=== PATIENT | female | born 1980 | race Caucasian/White ===

== ENCOUNTER 2018-01-11 09:15 | Emergency (ER) | payer OTHER, SELFPAY ==
[2018-01-11 09:17] VITALS: BP 136/82; PULSE 63; RESP 18; TEMP 36.4; O2SAT 100
[2018-01-11 09:34] LABS: Bacteria Urine None Seen; RBC Urine None Seen (0-5/HPF); WBC Urine None Seen (0-5/HPF)
[2018-01-11 09:35] LABS: Appearance Urine UA CLEAR; Bilirubin Urine UA NEGATIVE (NEGATIVE); Color Urine UA YELLOW; Glucose Urine UA NEGATIVE (Normal); Ketones Urine UA NEGATIVE (NEGATIVE); Leukocyte Esterase Urine UA NEGATIVE (NEGATIVE); Nitrite Urine UA Negative (Negative); Occult Blood Urine UA TRACE-INTACT (Negative); Protein Urine UA NEGATIVE (Negative); Specific Gravity Urine UA <=1.005 (1.000-1.035); Urobilinogen Urine UA 0.2 E.U./dL (0.2); pH Urine UA 6.5 (4.5-8.0)
[2018-01-11 09:41] LABS: Pregnancy Test Urine Positive (Negative)
[2018-01-11 09:46] LABS: Culture Indicated Urine Cult Not Indicated; Urine Comments Microscopic Normal
--- NOTE | 2018-01-11 10:49 | DI.US.S_ITS ---
PROCEDURE: US OB <= 14 WEEKS FETUS INDICATIONS: clots OUTSIDE/PRIOR DATING DATA: Last menstrual period (LMP): 10.28.17. LMP-based estimated date of delivery (BENITA): 08.31.18. First dating scan (date and location): 01.11.18 [facility]. Estimated date of delivery (BENITA) from first dating scan: 08.31.18. TECHNIQUE: Real-time scanning was performed of the fetus and maternal pelvic organs, with image documentation. COMPARISON: None. FINDINGS: Embryo: A single living intrauterine gestation is present with a heart rate of 122 beats per minute. [place]-rump length is 9 mm, corresponding to a 6 week 6 day gestation. Measurement variability in dating: +/- 4 weeks by LMP, +/- 7 days by mean sac diameter (use before 6 weeks gestation if crown-rump length not able to be measured), +/- 5 days by crown-rump length (up to 8 weeks 6 days gestation), +/- 7 days by crown-rump length (up to 13 weeks 6 days gestation). Maternal organs: Ovaries within normal limits. Limited images through the kidneys demonstrate no hydronephrosis. IMPRESSION: Early single living intrauterine gestation as above. Dictated by: Nimo Harrington M.D. on 01/11/2018 at 12:15 Approved by: Nimo Harrington M.D. on 01/11/2018 at 12:16
[2018-01-11 11:05] VITALS: BP 111/71; PULSE 66; RESP 15; O2SAT 100
[2018-01-11 11:28] LABS: Add Manual Diff / Slide Review NO; Basophils Percent Auto 0.4 % (0-2); Eosinophils Percent Auto 2.2 % (2-4); Hematocrit 40.5 % (36-46); Hemoglobin 13.5 g/dL (12.0-16.0); Lymphocytes Percent Auto 35.6 % (25-40); Mean Corpuscular HGB Conc 33.2 % (30-36); Mean Corpuscular Hemoglobin 30.2 PG (26-34); Neutrophils Absolute Auto 3700 /uL (3000-5900); Neutrophils Percent Auto 53.8 % (50-75); Platelet Count 209 X10^3/uL (150-400); Red Blood Cell Count 4.45 X10^6/uL (4.0-5.2); Red Cell Distribution Width 13.5 % (11.6-14.8); White Blood Cell Count 6.9 X10^3/uL (4.5-11.0)
--- NOTE | 2018-01-11 11:33 | ED_ITS ---
HPI - General Chief complaint: OB/Uterine Contractions Stated complaint: 7 WKS PREG,BROWN DISCHARGE Time Seen by Provider: 01/11/18 10:49 Source: patient Mode of arrival: ambulatory Limitations: no limitations History of Present Illness HPI Narrative: Patient is a 37-year-old female who presents with abdominal cramping and bleeding. She is currently 7 weeks . She passed 1 clot. She has had some spotting last week. History of 1 miscarriage in the past. Overall feeling weak tired and occasionally nauseated but nothing out of the ordinary. MD Complaint: vaginal bleeding and vaginal discharge Related Data Allergies Allergy/AdvReac Type Severity Reaction Status Date / Time Penicillins AdvReac Intermediate Hives Verified 01/11/18 09:17 Review of Systems Review of Systems GENERAL: Denies chills, fatigue, malaise, fever, sweats, travel HEENT: Denies sinus pain, ear pain, sore throat, difficulty swallowing, neck pain RESPIRATORY: Denies dyspnea, cough, wheezing, hemoptysis, sputum. CARDIOVASCULAR: Denies chest pain, palpitations, orthopnea, edema GASTROINTESTINAL: Denies nausea, vomiting, abdominal pain, diarrhea, constipation, melena. : Denies dysuria, frequency, incontinence, hematuria, urinary retention, flank pain. 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 12 point review of systems is negative except for those stated above and HPI All systems reviewed & are unremarkable except as noted in HPI and below Exam Initial Vital Signs Initial Vital Signs: Vital Signs Temperature 97.5 F L 01/11/18 09:17 Pulse Rate 63 01/11/18 09:17 Respiratory Rate 18 01/11/18 09:17 Blood Pressure 136/82 H 01/11/18 09:17 Pulse Oximetry 100 01/11/18 09:17 GENERAL: Well-appearing, well-nourished and in no acute distress. CARDIOVASCULAR: peripheral pulses in tact, cap refill <2 sec RESPIRATORY: No respiratory distress, speaks in full sentences without difficulty ABDOMEN: Soft, nontender, no guarding or rebound EXTREMITIES: Normal range of motion, no clubbing or edema. Neurovascularly intact NEUROLOGICAL: Cranial nerves II through XII grossly intact. Normal gait and speech. SKIN: Warm, dry, no petechiae, no rashes or lesions. Course Orders Ordered: ED Orders 01/11/18 09:20 Test Urine Stat UA Complete [Urinalysis and Microscopic] Stat 01/11/18 10:49 US OB <= 14 weeks fetus Stat 01/11/18 11:10 ABO RH Type Stat Complete Blood Count AUTO DIFF Stat Comprehensive Metabolic Panel Stat HCG Quantitative Stat Discontinued Medications Sodium Chloride (Normal Saline 0.9%) 1,000 mls @ 1,000 mls/hr IV BOLUS ONE Stop: 01/11/18 11:48 Vital Signs - 8 hr 01/11/18 09:17 01/11/18 11:05 01/11/18 12:00 Temperature 97.5 F L Pulse Rate 63 66 61 Respiratory Rate 18 15 16 Blood Pressure 136/82 H Blood Pressure [Left Arm] 111/71 109/70 Pulse Oximetry 100 100 100 01/11/18 13:15 Temperature Pulse Rate 61 Respiratory Rate 14 Blood Pressure 121/74 H Blood Pressure [Left Arm] Pulse Oximetry 99 MDM - OB/Uterine Contractions Lab Data Result diagrams: 01/11/18 11:10 01/11/18 11:10 Lab Results 01/11/18 01/11/18 01/11/18 Range/Units 09:20 09:20 11:10 WBC 6.9 (4.5-11.0) X10^3/uL RBC 4.45 (4.0-5.2) X10^6/uL Hgb 13.5 (12.0-16.0) g/dL Hct 40.5 (36-46) % MCV 91.0 (80-100) fL MCH 30.2 (26-34) PG MCHC 33.2 (30-36) % RDW 13.5 (11.6-14.8) % Plt Count 209 (150-400) X10^3/uL Neut % (Auto) 53.8 (50-75) % Lymph % (Auto) 35.6 (25-40) % [place] % (Auto) 8.0 (3-14) % Eos % (Auto) 2.2 (2-4) % Baso % (Auto) 0.4 (0-2) % Neut # (Auto) 3700 (4895-6132) /uL Sodium (137-145) mmol/L Potassium (3.4-5.1) mmol/L Chloride (98-107) mmol/L Carbon Dioxide (22-32) mmol/L BUN (7-17) mg/dL Creatinine (0.52-1.04) mg/dL Estimated GFR (>60) mL/min BUN/Creatinine Ratio (6-22) Glucose (70-100) mg/dL Calcium (8.4-10.2) mg/dL Total Bilirubin (0.2-1.3) mg/dL AST (14-36) IU/L ALT (9-52) IU/L Alkaline Phosphatase (38-126) U/L Total Protein (6.3-8.2) g/dL Albumin (3.5-5.0) g/dL Globulin (1.7-4.1) g/dL Albumin/Globulin Ratio (1.0-2.8) HCG, Quant mIU/mL Urine Color Yellow Urine Appearance Clear Urine pH 6.5 (4.5-8.0) Ur Specific [place] <=1.005 (1.000-1.035) Urine Protein Negative (Negative) Urine Glucose (UA) Negative (Normal) g/dL Urine Ketones Negative (NEGATIVE) Urine Occult Blood Trace-intact (Negative) Urine Nitrate Negative (Negative) Urine Bilirubin Negative (NEGATIVE) Urine Urobilinogen 0.2 (0.2) E.U./dL Ur Leukocyte Esterase Negative (NEGATIVE) Urine RBC None seen (0-5/HPF) Urine WBC None seen (0-5/HPF) Urine Bacteria None seen (None) Ur Culture Indicated? Cult not indicated Micro UA Comment Microscopic normal Urine Test Positive H (Negative) Blood Type 01/11/18 01/11/18 Range/Units 11:10 11:10 WBC (4.5-11.0) X10^3/uL RBC (4.0-5.2) X10^6/uL Hgb (12.0-16.0) g/dL Hct (36-46) % MCV (80-100) fL MCH (26-34) PG MCHC (30-36) % RDW (11.6-14.8) % Plt Count (150-400) X10^3/uL Neut % (Auto) (50-75) % Lymph % (Auto) (25-40) % [place] % (Auto) (3-14) % Eos % (Auto) (2-4) % Baso % (Auto) (0-2) % Neut # (Auto) (1004-9923) /uL Sodium 139 (137-145) mmol/L Potassium 3.7 (3.4-5.1) mmol/L Chloride 102 (98-107) mmol/L Carbon Dioxide 27 (22-32) mmol/L BUN 7 (7-17) mg/dL Creatinine 0.50 L (0.52-1.04) mg/dL Estimated GFR > 60.0 (>60) mL/min BUN/Creatinine Ratio 14.0 (6-22) Glucose 87 (70-100) mg/dL Calcium 9.0 (8.4-10.2) mg/dL Total Bilirubin 0.4 (0.2-1.3) mg/dL AST 24 (14-36) IU/L ALT 27 (9-52) IU/L Alkaline Phosphatase 45 (38-126) U/L Total Protein 7.9 (6.3-8.2) g/dL Albumin 4.2 (3.5-5.0) g/dL Globulin 3.7 (1.7-4.1) g/dL Albumin/Globulin Ratio 1.1 (1.0-2.8) HCG, Quant 38117 mIU/mL Urine Color Urine Appearance Urine pH (4.5-8.0) Ur Specific [place] (1.000-1.035) Urine Protein (Negative) Urine Glucose (UA) (Normal) g/dL Urine Ketones (NEGATIVE) Urine Occult Blood (Negative) Urine Nitrate (Negative) Urine Bilirubin (NEGATIVE) Urine Urobilinogen (0.2) E.U./dL Ur Leukocyte Esterase (NEGATIVE) Urine RBC (0-5/HPF) Urine WBC (0-5/HPF) Urine Bacteria (None) Ur Culture Indicated? Micro UA Comment Urine Test (Negative) Blood Type A Positive Imaging Data OB US<14wks: Radiologist's impression: PROCEDURE: US OB <= 14 WEEKS FETUS INDICATIONS: clots OUTSIDE/PRIOR DATING DATA: Last menstrual period (LMP): 4. LMP-based estimated date of delivery (BENITA): 08.31.18. First dating scan (date and location): 01.11.18 [facility]. Estimated date of delivery (BENITA) from first dating scan: 08.31.18. TECHNIQUE: Real-time scanning was performed of the fetus and maternal pelvic organs, with image documentation. COMPARISON: None. FINDINGS: Embryo: A single living intrauterine gestation is present with a heart rate of 122 beats per minute. [place]-rump length is 9 mm, corresponding to a 6 week 6 day gestation. Measurement variability in dating: +/- 4 weeks by LMP, +/- 7 days by mean sac diameter (use before 6 weeks gestation if crown-rump length not able to be measured), +/ - 5 days by crown-rump length (up to 8 weeks 6 days gestation), +/- 7 days by crown-rump length (up to 13 weeks 6 days gestation). Maternal organs: Ovaries within normal limits. Limited images through the kidneys demonstrate no hydronephrosis. IMPRESSION: Early single living intrauterine gestation as above. Discharge Plan Departure Patient Disposition: Home, Self-Care Clinical Impression: , threatened Discharge Date/Time: 01/11/18 13:15 Interventions: ED Discharge Assessment Last Done: 01/11/18 13:15 Instructions: Threatened Activity Restrictions/Additional Instructions: [id number] *You have been diagnosed with threatened *What to do: Ultrasound baby looks healthy beta HCG is reassuring be sure to have it rechecked in 2 days with your Ob -pelvic rest *Continue to take medications as directed *Follow up with your primary care provider in 2-3 days *Return to ER if you should have increasing vaginal bleeding, increasing abdominal pain or any new, worsening or concerning symptoms Referrals: Viviana Haas DO [Physician] -
[2018-01-11 11:37] LABS: Alanine Aminotransferase 27 IU/L (9-52); Albumin 4.2 g/dL (3.5-5.0); Albumin Globulin Ratio 1.1 (1.0-2.8); Alkaline Phosphatase 45 U/L (38-126); Aspartate Aminotransferase 24 IU/L (14-36); Bilirubin Total 0.4 mg/dL (0.2-1.3); Blood Urea Nitrogen 7 mg/dL (7-17); Carbon Dioxide 27 mmol/L (22-32); Chloride 102 mmol/L (98-107); Estimated Glomerular Filt Rate > 60.0 mL/min (>60); Globulin 3.7 g/dL (1.7-4.1); Glucose 87 mg/dL (70-100); HEMOLYSIS < 15 (0-50); Potassium 3.7 mmol/L (3.4-5.1); Sodium 139 mmol/L (137-145); Total Protein 7.9 g/dL (6.3-8.2)
[2018-01-11 12:00] VITALS: BP 109/70; PULSE 61; RESP 16; O2SAT 100
[2018-01-11 12:19] LABS: HCG Quantitative /Beta subunit 74328 mIU/mL
[2018-01-11 13:15] VITALS: BP 121/74; PULSE 61; RESP 14; O2SAT 99
== END 2018-01-11 13:15 | disposition home or self-care (01) ==
PROVIDERS: Emergency Provider Emergency Medicine
DX: O20.0 Threatened abortion (principal); Z3A.01 Less than 8 weeks gestation of pregnancy
CPT/HCPCS: 36591; 76801; 80053; 81001; 81025; 84702; 85025; 86900; 86901; 96360; 99282; 99284

== ENCOUNTER → 2018-01-27 12:03 | Outpatient (CLI) | payer OTHER, SELFPAY ==
--- NOTE | 2018-01-27 12:45 | DI.US.S_ITS ---
PROCEDURE: US OB <= 14 WEEKS FETUS INDICATIONS: DATES OUTSIDE/PRIOR DATING DATA: Last menstrual period (LMP): 4.3.18. LMP-based estimated date of delivery (BENITA): 2... First dating scan (date and location): 01.11.18 [facility]. Estimated date of delivery (BENITA) from first dating scan: 2... TECHNIQUE: Real-time scanning was performed of the fetus and maternal pelvic organs, with image documentation. Endovaginal scanning was also performed to better visualize the fetus and maternal ovaries. COMPARISON: [facility], , OB <= 14 WEEKS FETUS, 01/11/2018, 11:45. FINDINGS: Embryo: [place]-rump length measures 2.4 cm corresponding to 9 weeks 1 day. Heart rate measures 157 beats per minute. Measurement variability in dating: +/- 4 weeks by LMP, +/- 7 days by mean sac diameter (use before 6 weeks gestation if crown-rump length not able to be measured), +/- 5 days by crown-rump length (up to 8 weeks 6 days gestation), +/- 7 days by crown-rump length (up to 13 weeks 6 days gestation). Maternal organs: Ovaries not visualized. Limited images through the kidneys demonstrate no hydronephrosis. IMPRESSION: 9 week 1 day single living IUP. Dictated by: Hugo Doshi [facility] Interpreted: Gabi Tyson MD on 01/27/2018 at 14:49 Approved by: Gabi Tyson MD, PhD on 01/27/2018 at 17:01
== END ==
PROVIDERS: Visit Provider Family Medicine
DX: Z34.91 Encounter for supervision of normal pregnancy, unspecified, first trimester (principal); Z3A.09 9 weeks gestation of pregnancy
CPT/HCPCS: 76801; 76817

== ENCOUNTER → 2018-01-27 12:44 | Outpatient (CLI) | payer OTHER, SELFPAY ==
[2018-01-27 13:58] LABS: Add Manual Diff / Slide Review NO; Basophils Percent Auto 0.2 % (0-2); Eosinophils Percent Auto 2.3 % (2-4); Hematocrit 38.4 % (36-46); Hemoglobin 12.8 g/dL (12.0-16.0); Mean Corpuscular HGB Conc 33.4 % (30-36); Mean Corpuscular Hemoglobin 30.4 PG (26-34); Monocytes Percent Auto 6.2 % (3-14); Neutrophils Absolute Auto 4200 /uL (3000-5900); Neutrophils Percent Auto 56.3 % (50-75); Platelet Count 240 X10^3/uL (150-400); Red Blood Cell Count 4.21 X10^6/uL (4.0-5.2); Red Cell Distribution Width 13.1 % (11.6-14.8); White Blood Cell Count 7.6 X10^3/uL (4.5-11.0)
[2018-01-27 15:45] LABS: Hepatitis B Surface Antigen NEGATIVE s/c (NEGATIVE)
[2018-01-27 15:46] LABS: Rubella Antibody IgG 14.6 IU/mL (>15)
[2018-01-27 16:02] LABS: HIV 1 and 2 Antibody NEGATIVE (NEGATIVE); Hep C Virus Ab w/Reflex Quant NEGATIVE s/c (NEGATIVE)
[2018-01-29 15:55] LABS: HSV 2 IGG AB < 0.90 index (< 0.90); HSV1IGG < 0.90 index (< 0.90)
[2018-02-03 10:46] LABS: Rapid Plasma Reagin NON-REACTIVE
== END ==
PROVIDERS: Visit Provider Family Medicine
DX: Z34.91 Encounter for supervision of normal pregnancy, unspecified, first trimester (principal)
CPT/HCPCS: 36415; 76801; 76817; 80055; 86695; 86696; 86703; 86787; 86803; 86850; 86900; 86901

== ENCOUNTER → 2018-02-02 09:22 | Outpatient (CLI) | payer OTHER, SELFPAY ==
[2018-02-02 12:21] LABS: TSH w/ Reflex to FT4 0.67 uIU/mL (0.47-4.68)
== END ==
PROVIDERS: PCP Family Medicine; Visit Provider Family Medicine
DX: O09.511 Supervision of elderly primigravida, first trimester (principal); Z3A.09 9 weeks gestation of pregnancy
CPT/HCPCS: 36415; 84443

== ENCOUNTER → 2018-02-27 14:25 | Outpatient (CLI) | payer OTHER, SELFPAY ==
[2018-02-27 15:47] LABS: TSH w/ Reflex to FT4 1.44 uIU/mL (0.47-4.68)
== END ==
PROVIDERS: PCP Family Medicine; Visit Provider Family Medicine
DX: O09.521 Supervision of elderly multigravida, first trimester (principal); E03.9 Hypothyroidism, unspecified; O99.280 Endocrine, nutritional and metabolic diseases complicating pregnancy, unspecified trimester
CPT/HCPCS: 36415; 84443

== ENCOUNTER → 2018-04-03 15:16 | Outpatient (CLI) | payer OTHER, SELFPAY ==
[2018-04-03 17:50] LABS: Thyroid Stimulating Hormone 1.63 uIU/mL (0.47-4.68)
[2018-04-09 15:31] LABS: AFP, Serum 54.4 ng/mL; Calc Gestational Age 18.6; Est Date Determined by US; Maternal Weight 167 lbs; Number of Fetuses 1; Prev Pregnancies Down Syndrome NOT GIVEN
== END ==
PROVIDERS: PCP Family Medicine; Visit Provider Family Medicine
DX: E03.9 Hypothyroidism, unspecified (principal); O99.280 Endocrine, nutritional and metabolic diseases complicating pregnancy, unspecified trimester
CPT/HCPCS: 36415; 82105; 84443

== ENCOUNTER → 2018-04-16 07:37 | Outpatient (CLI) | payer OTHER, SELFPAY ==
--- NOTE | 2018-04-16 07:38 | DI.US.S_ITS ---
PROCEDURE: US OB >= 14 WEEKS FETUS INDICATIONS: ANATOMY OUTSIDE/PRIOR DATING DATA: Last menstrual period (LMP): 4.3.18. LMP-based estimated date of delivery (BENITA): 2... First dating scan (date and location): 18 at [facility]. Estimated date of delivery (BENITA) from first dating scan: 2... TECHNIQUE: Real-time scanning was performed of the fetus, with image documentation and biometric measurements. COMPARISON: [facility], OB <= 14 WEEKS FETUS, 01/11/2018, 11:45. [facility], OB <= 14 WEEKS FETUS, 01/27/2018, 13:11. FINDINGS: General: A single live intrauterine gestation is present. Presentation: Vertex. Placenta: Placental position is anterior, without previa. Amniotic fluid index: 15.2 cm, normal range is 5-24 cm. heart rate: 153 beats per minute. Maternal cervical canal: 3.1 cm long. Normal lower limit is 2.5 cm. biometrics: Biparietal diameter: 4.7 cm equals 20 weeks 1 day Head circumference: 18.5 cm equals 20 weeks 6 days Abdominal circumference: 13.2 cm equals 20 weeks 1 day Femur length: 3.5 cm equals 20 weeks 0 days Estimated gestational age from initial scan: 20 weeks 3 days Composite gestational age from present scan: 21 weeks 0 days Estimated weight and percentile: 427 g, 93rd percentile Measurement variability for biometric dating: +/- 7 days from 14 weeks to 15 weeks 6 days gestation, +/- 10 days from 16 weeks to 21 weeks 6 days gestation, +/- 2 weeks from 22 weeks to 27 weeks 6 days gestation, +/- 3 weeks for 28 weeks gestation or later. weight reference: 4500 g or EFW >90/95% is considered macrosomia or large for gestational age. EFW <10% is small for gestational age. EFW 5% or less is considered intra-uterine growth restriction. Anatomic survey: Neuro: Ventricles are non-dilated at less than 10 mm. Cisterna magna is normal at 3-11 mm. Cerebellum is normal in size and morphology. Nuchal skin fold: Normal at less than 6 mm between 14-21 weeks gestational age. Face: Nose and lips are within normal limits. The facial profile is not well-seen. Spine: No evidence for spina bifida. Heart: 4-chambered heart is present, with normal ventricular outflow tracts. Diaphragm: Diaphragm is intact. Stomach: Left-sided stomach is present. Kidneys: No hydronephrosis. Normal is less than 5 mm in 2nd trimester, less than 7 mm in 3rd trimester. Cord: 3-vessel cord has orthotopic insertion. Bladder: Normal in size. Extremities: All 4 extremities identified. IMPRESSION: Normal interval growth when compared to the prior ultrasound examination. No anatomic abnormality is identified, although the facial profile is not well-seen. Dictated by: Naveen iKm M.D. on 04/16/2018 at 8:47 Approved by: Naveen Kim M.D. on 04/16/2018 at 8:51
== END ==
PROVIDERS: PCP Family Medicine; Visit Provider Family Medicine
DX: Z34.92 Encounter for supervision of normal pregnancy, unspecified, second trimester (principal); Z3A.21 21 weeks gestation of pregnancy
CPT/HCPCS: 76811

== ENCOUNTER → 2018-05-01 15:00 | Outpatient (CLI) | payer OTHER, SELFPAY | PROVIDERS: PCP Family Medicine; Visit Provider Family Medicine | DX: E03.9 Hypothyroidism, unspecified (principal); O99.280 Endocrine, nutritional and metabolic diseases complicating pregnancy, unspecified trimester | CPT/HCPCS: 36415; 84443 ==

== ENCOUNTER → 2018-06-04 09:45 | Outpatient (CLI) | payer OTHER, SELFPAY ==
[2018-06-04 13:15] LABS: Hematocrit 33.8 % (36-46); Hemoglobin 11.1 g/dL (12.0-16.0)
[2018-06-04 14:27] LABS: GTT (PREG) 1 Hour PP 50gm Dose 113 mg/dL (76-139)
== END ==
PROVIDERS: PCP Family Medicine; Visit Provider Family Medicine
DX: Z34.82 Encounter for supervision of other normal pregnancy, second trimester (principal); Z3A.27 27 weeks gestation of pregnancy
CPT/HCPCS: 36415; 82950; 85014; 85018

== ENCOUNTER → 2018-07-10 11:45 | Outpatient (CLI) | payer OTHER, SELFPAY ==
--- NOTE | 2018-07-10 11:47 | DI.US.S_ITS ---
PROCEDURE: US OB LIMITED INDICATIONS: PROFILE, CERVICAL LENGTH OUTSIDE/PRIOR DATING DATA: Last menstrual period (LMP): 4.3.18. LMP-based estimated date of delivery (BENITA): 2.4.19. First dating scan (date and location): 6.17.18 at [facility]. Estimated date of delivery (BENITA) from first dating scan: 2.4.19. TECHNIQUE: Real-time scanning was performed of the fetus, with image documentation. Endovaginal scanning: No COMPARISON: [facility], , OB >= 14 WEEKS FETUS, 04/16/2018, 7:51. FINDINGS: A single living intrauterine gestation is present. Presentation: Vertex Placenta: Placental position is anterior, without previa. Amniotic fluid index: 12.7 cm, normal range is 5-24 cm. heart rate: 135 beats per minute. Maternal cervical canal: 3.2 cm long. Normal lower limit is 2.5 cm. Estimated gestational age from initial scan: 32 weeks 4 days Facial profile again not well-seen.. IMPRESSION: Facial profile again not well-visualized secondary to positioning. Dictated by: Hugo Doshi [facility] Interpreted: Kelechi Mcdonnell MD on 07/10/2018 at 13:34 Approved by: Kelechi Mcdonnell M.D. on 07/10/2018 at 14:29
[2018-07-10 12:59] LABS: TSH w/ Reflex to FT4 0.77 uIU/mL (0.47-4.68)
== END ==
PROVIDERS: PCP Family Medicine; Visit Provider Family Medicine
DX: Z36.2 Encounter for other antenatal screening follow-up (principal); Z3A.32 32 weeks gestation of pregnancy; O99.283 Endocrine, nutritional and metabolic diseases complicating pregnancy, third trimester; E03.9 Hypothyroidism, unspecified
CPT/HCPCS: 36415; 76815; 84443

== ENCOUNTER → 2018-08-07 09:55 | Outpatient (CLI) | payer OTHER, SELFPAY ==
[2018-08-08 08:38] LABS: Strep Grp B PCR NEG for Grp B Strep
== END ==
PROVIDERS: PCP Family Medicine; Visit Provider Family Medicine
DX: Z34.93 Encounter for supervision of normal pregnancy, unspecified, third trimester (principal); Z3A.36 36 weeks gestation of pregnancy
CPT/HCPCS: 87653

== ENCOUNTER 2018-08-07 10:02 | Outpatient (CLI) | payer OTHER, SELFPAY ==
--- NOTE | 2018-08-07 10:46 | PM.OBTRLD ---
Visit Information Visit Information Date of evaluation: 08/07/18 Primary OB Provider: Viviana Haas Reason for Evaluation: Yes non-stress test non-stress test reason: other (Advanced maternal age) PFSH Medical History Abnormal Pap smear of cervix (Chronic ~2003) Foot pain (Chronic ~2005) Fractures (Chronic ~1996) Human papilloma virus (Chronic ~2003) Hypothyroidism (Chronic ~2010) Migraines (Chronic ~1996) History of chicken pox (Resolved) Surgical History H/O sinus surgery (Chronic) Martin's neuroma (Chronic) Anesthesia (Resolved) H/O LEEP (Resolved) Family History Grandfather Lung cancer Hypertension Heart disease Grandfather Lung cancer Grandmother Lung cancer Grandmother Afib Mother Hypertension Social History marital status: number of children: 1 household members: spouse and children lives independently: Yes pets and animals: Yes education level: other (Doctoral degree) 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 Reactive NST for AMA. Contractions present but patient not feeling them. Follow up in one week.
--- NOTE | 2018-08-07 10:49 | P.TNLD_ITS ---
Visit Information Visit Information Date of evaluation: 08/07/18 Primary OB Provider: Viviana Haas Reason for Evaluation: Yes non-stress test non-stress test reason: other ( Advanced maternal age) PFSH Medical History Abnormal Pap smear of cervix (Chronic ~2003) Foot pain (Chronic ~2005) Fractures (Chronic ~1996) Human papilloma virus (Chronic ~2003) Hypothyroidism (Chronic ~2010) Migraines (Chronic ~1996) History of chicken pox (Resolved) Surgical History H/O sinus surgery (Chronic) Martin's neuroma (Chronic) Anesthesia (Resolved) H/O LEEP (Resolved) Family History Grandfather Lung cancer Hypertension Heart disease Grandfather Lung cancer Grandmother Lung cancer Grandmother Afib Mother Hypertension Social History marital status: number of children: 1 household members: spouse and children lives independently: Yes pets and animals: Yes education level: other (Doctoral degree) 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 Reactive NST for AMA. Contractions present but patient not feeling them. Follow up in one week.
== END 2018-08-07 10:46 | disposition home or self-care (01) ==
LOC: LABOR 10:39 → OB 08-10 14:49
PROVIDERS: PCP Family Medicine; Visit Provider Family Medicine
DX: O09.523 Supervision of elderly multigravida, third trimester (principal); Z3A.36 36 weeks gestation of pregnancy
CPT/HCPCS: 59025; 87653; G0378; G0379

== ENCOUNTER 2018-08-10 09:41 | Outpatient (CLI) | payer OTHER, SELFPAY ==
--- NOTE | 2018-08-10 10:19 | PM.OBTRLD ---
Visit Information Visit Information Date of evaluation: 08/10/18 Primary OB Provider: Viviana Haas Reason for Evaluation: Yes rupture of membranes Comments/Additional reasons for admission: Patient concerned about possible ROM this morning. Denies painful contractions. 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) Smoking Status: Former smoker alcohol intake: former (quit during pregnanct) substance use type: does not use Evaluation Evaluation Baseline heart rate: 130 Variability: Moderate (11-25) monitor accelerations: Present monitor decelerations: Absent Uterine Contraction Intensity: Mild Category of Tracing: I Non-invasive Membranes Rupture Test: negative Diagnosis, Plan/Disposition Final Diagnosis (1) 37 weeks gestation of : Current Visit: No Status: Acute (2) Previous section: Current Visit: No Status: Chronic Plan/Disposition Plan: Aminsure negative, contractions irregular and not felt by patient. Follow up as scheduled later this week. Return to center for ROM or regular contractions.
== END 2018-08-10 10:30 | disposition home or self-care (01) ==
LOC: OB 14:59
PROVIDERS: PCP Family Medicine; Visit Provider Family Medicine
DX: Z03.71 Encounter for suspected problem with amniotic cavity and membrane ruled out (principal); Z3A.37 37 weeks gestation of pregnancy
CPT/HCPCS: 59025; 84112; G0378; G0379

== ENCOUNTER 2018-08-14 10:15 | Outpatient (CLI) | payer OTHER, SELFPAY ==
--- NOTE | 2018-08-14 11:16 | P.TNLD_ITS ---
Visit Information Visit Information Date of evaluation: 08/14/18 Primary OB Provider: Viviana Haas Reason for Evaluation: Yes non-stress test non-stress test reason: other (AMA) PFSH Medical History Abnormal Pap smear of cervix (Chronic ~2003) Foot pain (Chronic ~2005) Fractures (Chronic ~1996) Human papilloma virus (Chronic ~2003) Hypothyroidism (Chronic ~2010) Migraines (Chronic ~1996) History of chicken pox (Resolved) Surgical History H/O sinus surgery (Chronic) Martin's neuroma (Chronic) Anesthesia (Resolved) H/O LEEP (Resolved) Family History Grandfather Lung cancer Hypertension Heart disease Grandfather Lung cancer Grandmother Lung cancer Grandmother Afib Mother Hypertension Social History marital status: number of children: 1 household members: spouse and children lives independently: Yes pets and animals: Yes education level: other (Doctoral degree) 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 Follow up in one week as scheduled.
== END 2018-08-14 10:55 | disposition home or self-care (01) ==
LOC: LABOR 11:23 → OB 08-17 12:05
PROVIDERS: PCP Family Medicine; Visit Provider Family Medicine
DX: O09.523 Supervision of elderly multigravida, third trimester (principal); Z3A.37 37 weeks gestation of pregnancy
CPT/HCPCS: 59025; G0378; G0379

== ENCOUNTER 2018-08-18 05:28 | Inpatient (IN) | payer OTHER, SELFPAY ==
[2018-08-18] VITALS (8 sets, daily range): BP systolic 96–140; BP diastolic 46–81; PULSE 64–72; RESP 11–22; TEMP 36.3–36.9; O2SAT 97–100
--- NOTE | 2018-08-18 06:55 | PM.OBHP.1 ---
OB HPI Date/Time Date of admission: 08/18/18 Date Patient Seen: 08/18/18 Time Patient Seen: 06:45 History of Present Condition Chief complaint: evaluation of labor : 3 Para: 1 Estimated Date of Delivery: 08/29/18 Estimated Gestational Age (weeks): 38w1d Narrative: Cintia Fox is a 38 year old at 38+1 weeks gestation with h/o prior who presented to the center with contractions and SROM upon arrival. Indications Operative indications ( section): previous uterine surgery History of Present care: good care, initiated at week # (9), number of visits (10) and pounds weight gain (50) Dating criteria: LMP confirmed by 1st trimester US Ultrasounds: normal mid trimester US Obstetrical complications: other (AMA, h/o LEEP) Medical complications: other (Well-controlled hypothyroidism) Preadmission Labs Blood type: A (+) positive -: Antibody screen: negative, HBsAG: negative, HIV: negative, HSV 1: negative, HSV 2: negative and RPR/VDLR: negative -: Chlamydia screen: not detected and Gonorrhea screen: not detected -: Rubella: equivocal and Varicella: immune HCT: 38.4 HCAB: negative PAP: Normal Cell-free DNA: Normal, AFP normal 1 hr GTT: 113 Prior (ies) History: 10/19/14 C/S at 39 weeks for breech, female 8 lbs 6 oz Evaluation Evaluation Baseline heart rate: 130 Variability: Moderate (11-25) monitor accelerations: Present monitor decelerations: Absent Contraction Frequency (minutes): 4 Uterine Contraction Intensity: Moderate Category of Tracing: I Non-invasive Membranes Rupture Test: positive [facility] Medical History Abnormal Pap smear of cervix (Chronic ~2003) Foot pain (Chronic ~2005) Fractures (Chronic ~1996) Human papilloma virus (Chronic ~2003) Hypothyroidism (Chronic ~2010) Migraines (Chronic ~1996) History of chicken pox (Resolved) Surgical History H/O sinus surgery (Chronic) Martin's neuroma (Chronic) Anesthesia (Resolved) H/O LEEP (Resolved) Family History Grandfather Lung cancer Hypertension Heart disease Grandfather Lung cancer Grandmother Lung cancer Grandmother Afib Mother Hypertension Social History marital status: number of children: 1 household members: spouse and children lives independently: Yes pets and animals: Yes education level: other (Doctoral degree) 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) Smoking Status: Never smoker alcohol intake: former (quit during pregnanct) substance use type: does not use Meds Home Medications Medication Instructions Recorded Confirmed Type levothyroxine 112 mcg tablet See Label Instructions PO DAILY 06/23/18 Rx #120 tab breast pump #1 each 07/31/18 Rx Allergies Allergy/AdvReac Type Severity Reaction Status Date / Time Penicillins AdvReac Intermediate Hives Verified 01/11/18 09:17 Review of Systems Review of Systems All systems reviewed & are unremarkable except as noted in HPI and below Exam Const General: healthy appearing and comfortable HENMT Head: normal to inspection Ears: hearing grossly normal bilaterally Nose: external nose normal Mouth: oral mucosae normal Teeth and gingiva: dentition normal Eyes General: appearance normal, both eyes and all related structures Neck Neck: normal visual inspection Thyroid: thyroid normal Resp Effort & Inspection: normal respiratory effort Auscultation: clear to auscultation bilaterally and no wheezes Cardio Rate: regular rate Rhythm: regular rhythm Heart Sounds: S1 normal, S2 normal and no murmurs GI Other: Gravid Uterus Location (Fundal Height): 39 Presentation: vertex Estimated Weight (lbs): 8 Amniotic Fluid: clear Skin General: no rashes or lesions noted Neuro General: alert, awake and oriented x3 Extrem General: normal to inspection and no clubbing, cyanosis or edema Assessment and Plan (1) 38 weeks gestation of : Current visit: Yes Status: Acute (2) Advanced maternal age (AMA) in : Current visit: No Status: Chronic (3) Previous section: Current visit: No Status: Chronic (4) Hypothyroidism affecting : Current visit: No Status: Chronic Plan: Plan: 38 year old at 38+1 weeks gestation with spontaneous rupture of membranes and regular contractions with h/o prior . Will proceed with repeat . Risks of procedure reviewed with patient including bleeding, infection, risk of injury to bowel or bladder. Consent signed and in the chart. Ancef 2 g prior to surgery.
[2018-08-18] MEDS: LACTATED RINGERS 1,000 ML 100 ML IV ×3 (07:00→08:26)
[2018-08-18 07:08] LABS: Add Manual Diff / Slide Review NO; Basophils Absolute Auto 0 /uL (0-100); Basophils Percent Auto 0.2 % (0-2); Eosinophils Absolute Auto 100 /uL (0-450); Eosinophils Percent Auto 1.3 % (2-4); Hematocrit 37.7 % (36-46); Hemoglobin 12.6 g/dL (12.0-16.0); Lymphocytes Absolute Auto 2100 /uL (1100-4500); Lymphocytes Percent Auto 22.2 % (25-40); Mean Corpuscular HGB Conc 33.4 % (30-36); Mean Corpuscular Hemoglobin 30.4 PG (26-34); Mean Corpuscular Volume 91.1 fL (80-100); Monocytes Absolute Auto 700 /uL (0-900); Neutrophils Absolute Auto 6600 /uL (1500-7000); Neutrophils Percent Auto 69.3 % (50-75); Platelet Count 245 X10^3/uL (150-400); Red Blood Cell Count 4.14 X10^6/uL (4.0-5.2); Red Cell Distribution Width 14.8 % (11.6-14.8); White Blood Cell Count 9.6 X10^3/uL (4.5-11.0)
--- NOTE | 2018-08-18 07:19 | PM.PREOP ---
Pre-operative Note Interval Note History & Physical reviewed/Exam performed by Physician: Yes Changes to H&P: No
[2018-08-18] MEDS: CEFAZOLIN 2 GM/100 ML FROZ.PIGGY IV (07:35)
--- NOTE | 2018-08-18 08:12 | SUR.OPER ---
Supine on Padded OR bed, head on pillow, safety belt at thigh, arms secured on padded arm boards at <90 degrees abduction. Bump under right buttock. Legs uncrossed with pillow under knees, gel pad to heels, tape over blanket to lower legs.
--- NOTE | 2018-08-18 08:12 | SUR.OPER ---
Viable female delivered at 0800. Placenta and Cord Blood sent with L&D nurse.
--- NOTE | 2018-08-18 08:56 | PM.OP.1 ---
Operative Date/Time/Diagnoses Date of procedure: 08/18/18 Time of procedure: 09:33 Pre-op diagnosis: Prior 38 weeks of Spontaneous rupture of membranes Post-op diagnosis: same Procedure & Clinicians Procedure: Low transverse section Same procedure as scheduled: Yes Indications: Prior Surgeon: Viviana Haas Accounting Software Specialist: Nayla Sarabia Anesthesia Type: Spinal Operative Notes Findings: Viable female , normal uterus, tubes and ovaries Closure Type: primary Specimen(s): other (Cord blood) Applied: catheter Estimated Blood Loss (mL): 500 Procedure in detail: The patient was taken to the operating room where she was placed in the seated position. Spinal anesthesia was administered. She was then placed in the dorsal supine position with a leftward tilt. She was prepped and draped in the usual sterile fashion. A timeout was performed. After spinal analgesia was found to be adequate, a Pfannenstiel skin incision was made 2 fingerbreadths above the pubic symphysis and carried through to the underlying layer fascia. The fascia was nicked in the midline and the incision extended bilaterally with Bui scissors. The superior aspect of the fascial incision was grasped with a Cassidy clamps, elevated, and the underlying rectus muscles dissected off sharply and bluntly. Attention was then turned to the inferior aspect of this incision which in a similar fashion was grasped with a Cassidy clamps, elevated, and the underlying rectus muscles dissected off sharply and bluntly. The rectus muscles were in the midline. The peritoneum was identified, grasped between 2 hemostats, and entered sharply with the Metzenbaum scissors. This incision was extended superiorly and inferiorly with good visualization of the bladder. The bladder blade was inserted. The vesicouterine peritoneum was identified, grasped with the pickup, and entered sharply with the Metzenbaum scissors. This incision was extended bilaterally, and the bladder flap was created digitally. The bladder blade was reinserted. The lower uterine segment was incised in a transverse fashion with the scalpel. Upon entering the amniotic sac there was a small amount clear amniotic fluid. The 's head was delivered. The remainder of the body delivered without difficulty. The cord was double clamped and cut. The infant was handed off to waiting RN and RT. The placenta was delivered manually. The uterus was cleared of all clots and debris. The uterine incision was repaired with #1 chromic in a running interlocking fashion and a second layer the same suture was used for an imbricating layer. Hemostasis was achieved. The tubes and ovaries were examined and were found to be normal. The gutters were cleared of all clots and debris. The parietal peritoneum was closed using 3-0 Vicryl in a running fashion. The fascia was reapproximated using 0 Vicryl in a running fashion. Subcutaneous layer was copiously irrigated with warm normal saline. 6 simple interrupted sutures of 3-0 Vicryl were placed to reapproximate the subcutaneous layer. The skin was closed with 4-0 undyed Vicryl in a subcuticular fashion. Steri-Strips were placed. An Aquacel dressing was placed. The uterus was expressed of a small amount of old blood. Sponge, lap, and instrument counts were correct. The patient tolerated the procedure well, and was taken to PACU in stable condition.
--- NOTE | 2018-08-18 09:14 | SUR.PHASEI ---
Initially nauseated, treated with phenyephrine by dr be and ivette sow, now resolved tolerated ice chip. spinal down to T 12.
[2018-08-18] MEDS: OXYCODONE/ACETAMINOPHEN 5/325 TABLET 1 TAB PO (11:56)
[2018-08-18] MEDS: ONDANSETRON 4 MG/2 ML INJ IV (12:38)
[2018-08-18] MEDS: KETOROLAC 30 MG/ML VIAL IV ×2 (14:59→21:12)
[2018-08-19 02:49] VITALS: TEMP 37.2
[2018-08-19] MEDS: KETOROLAC 30 MG/ML VIAL IV (02:49)
[2018-08-19] MEDS: LANOLIN OINT 7 GM 1 APPLIC TOP (06:13)
[2018-08-19 07:44] LABS: Hematocrit 30.6 % (36-46); Hemoglobin 10.3 g/dL (12.0-16.0)
[2018-08-19] MEDS: DOCUSATE 250 MG CAPSULE PO (08:27)
[2018-08-19] MEDS: LEVOTHYROXINE 112 MCG TABLET PO (08:27)
[2018-08-19] MEDS: IBUPROFEN 600 MG TABLET PO ×3 (09:26→21:19)
[2018-08-19] MEDS: ACETAMINOPHEN 325 MG TABLET 650 MG PO ×2 (11:54→23:39)
--- NOTE | 2018-08-19 13:26 | PM.OBPN.1 ---
Subjective - OB Interval history: Patient had recurrent vomiting after Percocet yesterday. Aquacel dressing become saturated and had to be removed. No further bleeding from the incision or further vomiting. Patient is taking Tylenol and ibuprofen with reasonable control of her pain. Vaginal bleeding is light. She is voiding and passing gas. going well. No complaints. Patient comments: no complaints, pain well controlled, tolerating diet and flatus present [place] baby status: doing well feeding status: exclusively breast feeding Date Patient Seen: 08/19/18 Time Patient Seen: 12:45 Exam Vital Signs (past 8 hours): Oxygen Delivery Method Room Air Temperature 98.4 BP 106/66 Pulse 68 Respirations 16 Narrative Exam Narrative: General: Awake and alert, no acute distress. HEENT: NCAT, EOMI, moist oral mucosa CV: Regular rate and rhythm, no murmurs, rubs or gallops Lungs: CTAB, no wheezes, rales, or rhonchi Abdomen: Lower abdominal dressing clean and dry. Abdomen soft, nontender; bowel tones active; uterus firm 1 cm below umbilicus Extremities: Warm, trace edema bilaterally, 2+ pedal pulses bilaterally Objective Labs Result Diagrams: 08/19/18 07:22 Labs: Laboratory Results - last 24 hr 08/19/18 07:22 Hgb 10.3 L Hct 30.6 L Assessment & Plan (1) 38 weeks gestation of : Status: Acute Current Visit: Yes (2) Advanced maternal age (AMA) in : Status: Chronic Current Visit: No (3) Previous section: Status: Chronic Current Visit: No (4) Hypothyroidism affecting : Status: Chronic Current Visit: No (5) S/P : Status: Acute Current Visit: Yes Plan day: 1 plan OB: routine care and routine postop care Comments: Anticipate discharge home tomorrow. Time Spent With Patient Total time spent is greater than 50% in coordination of care (as documented) at patient's floor/unit and/or counseling patient: less than 15 minutes
[2018-08-20] MEDS: LEVOTHYROXINE 112 MCG TABLET PO (04:01)
[2018-08-20] MEDS: IBUPROFEN 600 MG TABLET PO ×2 (04:06→09:17)
[2018-08-20] MEDS: ACETAMINOPHEN 325 MG TABLET 650 MG PO (06:01)
[2018-08-20 09:33] VITALS: BP 98/48; PULSE 70; RESP 11; TEMP 37.2
--- NOTE | 2018-08-20 09:52 | PM.OBDS.1 ---
Discharge Providers Date of admission: 08/18/18 05:28 Primary care physician: Viviana Haas DO Consults: 08/18/18 09:33 Consult to Valve Inserter Routine Comment: Discharge provider: Viviana Haas DO Discharge Date: 08/20/18 Summary Date Patient Seen: 08/20/18 Time Patient Seen: 09:30 Hospital Course: Patient is a 38-year-old status post repeat section on 08/17/18. Patient presented to the center with spontaneous rupture of membranes and active labor so was taken to the operating room for repeat . She was originally scheduled for repeat on 08/24/18. In the hours after delivery patient developed nausea and vomiting secondary to Percocet. Aquacel dressing had to be removed due to bleeding of her incision however upon removal bleeding had stopped. ABD dressing placed without further bleeding. Patient declined opiate pain medication and nausea and vomiting did not return. Pain was reasonably well controlled with ibuprofen and Tylenol. Patient reported vaginal bleeding was light. going well. Patient was ambulating, voiding and stooling without difficulty. She was eager to discharge home. Exam Temperature 98.6? blood pressure 134/76 heart rate 56 respirations 16 General: Awake and alert, no acute distress. HEENT: NCAT, EOMI, moist oral mucosa CV: Regular rate and rhythm, no murmurs, rubs or gallops Lungs: CTAB, no wheezes, rales, or rhonchi Abdomen: Low transverse abdominal incision intact, Steri-Strips intact. No surrounding erythema or exudate. Soft, nontender; bowel tones active; uterus firm 1 cm below umbilicus. Extremities: Warm, no edema, 2+ pedal pulses bilaterally Peripartum Data Infant Delivery Method: Section complications: none Discharge Diagnosis (1) 38 weeks gestation of : Status: Acute (2) Advanced maternal age (AMA) in : Status: Chronic (3) Previous section: Status: Chronic (4) Hypothyroidism affecting : Status: Chronic (5) S/P : Status: Acute Status at Discharge Functional status at discharge: independent ambulation Overall status at discharge: patient is progressing back to baseline Time Spent with Patient Total time spent providing and/or coordinating discharge services: Less than 30 minutes Objective Labs Result Diagrams: 08/19/18 07:22 Discharge Plan Discharge Plan Patient Disposition: Home Discharge comment: Patient instructed to call for fevers, severe pain or bleeding through more than a pad an hour. Follow-up with Dr. Haas as scheduled. Discharge Med Rec/Prescriptions Prescriptions: New acetaminophen 325 mg Tablet 650 mg PO Q6HR PRN (Reason: As Needed For Fever/Mild Pain) Qty: 30 RF: 0 ibuprofen 600 mg Tablet 600 mg PO Q6HR PRN (Reason: As Needed For Fever/Mild Pain) Qty: 30 RF: 0 Continue levothyroxine 112 mcg tablet See Label Instructions PO DAILY Qty: 120 RF: 3 breast pump device .Route .MEDSUPPLY Qty: 1 RF: 0 Follow up/Referrals: Viviana Haas DO [Primary Care Provider] - 08/24/18 12:00 pm Discharge Data Primary Care Provider: Viviana Haas Attending Provider: Viviana Haas Admit Date/Time: 08/18/18 05:28
== END 2018-08-20 11:45 | disposition home or self-care (01) | DRG 788 ==
PROVIDERS: Admitting Provider Family Medicine; PCP Family Medicine; Visit Provider Family Medicine
PROC: 10D00Z1 Extraction of Products of Conception, Low, Open Approach (ICD-10-PCS; CPT 59514; principal; 2018-08-18 07:00)
DX: O75.82 Onset (spontaneous) of labor after 37 completed weeks of gestation but before 39 completed weeks gestation, with delivery by (planned) cesarean section (principal); R11.2 Nausea with vomiting, unspecified; Z37.0 Single live birth; Z3A.38 38 weeks gestation of pregnancy
CPT/HCPCS: 36415; 59050; 59510; 59514; 84112; 85014; 85018; 85025; 86850; 86900; 86901; G0379; J0171; J0690; J1885; J2274; J2405; J2590; J2765

== ENCOUNTER → 2018-10-02 11:19 | Outpatient (CLI) | payer OTHER, SELFPAY ==
[2018-10-02 12:53] LABS: TSH w/ Reflex to FT4 < 0.02 uIU/mL (0.47-4.68)
[2018-10-02 13:21] LABS: Free T4, Direct Thyroxine 1.71 ng/dL (0.78-2.19)
== END ==
PROVIDERS: PCP Family Medicine; Visit Provider Family Medicine
DX: E03.9 Hypothyroidism, unspecified (principal); O99.280 Endocrine, nutritional and metabolic diseases complicating pregnancy, unspecified trimester
CPT/HCPCS: 36415; 84439; 84443

== ENCOUNTER → 2018-11-19 11:10 | Outpatient (CLI) | payer OTHER, SELFPAY ==
[2018-11-19 12:33] LABS: TSH w/ Reflex to FT4 < 0.02 uIU/mL (0.47-4.68)
== END ==
PROVIDERS: PCP Family Medicine; Visit Provider Family Medicine
DX: E03.9 Hypothyroidism, unspecified (principal)
CPT/HCPCS: 36415; 84439; 84443

== ENCOUNTER → 2019-03-11 11:58 | Outpatient (CLI) | payer OTHER, SELFPAY ==
[2019-03-11 13:41] LABS: TSH w/ Reflex to FT4 8.87 uIU/mL (0.47-4.68)
[2019-03-11 14:10] LABS: Free T4, Direct Thyroxine 0.84 ng/dL (0.78-2.19)
== END ==
PROVIDERS: PCP Family Medicine; Visit Provider Family Medicine
DX: E03.9 Hypothyroidism, unspecified (principal)
CPT/HCPCS: 36415; 84439; 84443

== ENCOUNTER → 2019-06-10 09:48 | Outpatient (CLI) | payer OTHER, SELFPAY ==
[2019-06-10 12:25] LABS: Free T3, Triiodothyronine Free 3.41 pg/mL (2.77-5.27); Free T4, Direct Thyroxine 1.19 ng/dL (0.78-2.19)
[2019-06-10 12:38] LABS: Thyroid Stimulating Hormone 1.85 uIU/mL (0.47-4.68)
== END ==
PROVIDERS: PCP Family Medicine; Visit Provider Family Medicine
DX: E03.9 Hypothyroidism, unspecified (principal)
CPT/HCPCS: 36415; 84439; 84443; 84481

== ENCOUNTER → 2019-12-23 12:52 | Outpatient (CLI) | payer OTHER, SELFPAY ==
[2019-12-23 14:09] LABS: Add Manual Diff / Slide Review NO; Basophils Absolute Auto 0 /uL (0-100); Basophils Percent Auto 0.3 % (0-2); Eosinophils Absolute Auto 100 /uL (0-450); Eosinophils Percent Auto 2.2 % (2-4); Hemoglobin 13.2 g/dL (12.0-16.0); Lymphocytes Absolute Auto 2400 /uL (1100-4500); Lymphocytes Percent Auto 40.7 % (25-40); Mean Corpuscular HGB Conc 33.7 % (30-36); Mean Corpuscular Hemoglobin 29.9 PG (26-34); Mean Corpuscular Volume 88.5 fL (80-100); Monocytes Absolute Auto 400 /uL (0-900); Monocytes Percent Auto 6.8 % (3-14); Neutrophils Absolute Auto 3000 /uL (1500-7000); Platelet Count 196 X10^3/uL (150-400); Red Blood Cell Count 4.41 X10^6/uL (4.0-5.2); Red Cell Distribution Width 13.5 % (11.6-14.8)
[2019-12-23 14:18] LABS: Free T3, Triiodothyronine Free 2.95 pg/mL (2.77-5.27); Free T4, Direct Thyroxine 1.07 ng/dL (0.78-2.19)
[2019-12-23 14:31] LABS: Thyroid Stimulating Hormone 2.71 uIU/mL (0.47-4.68)
[2019-12-23 16:44] LABS: Alanine Aminotransferase 23 IU/L (<35); Albumin 4.6 g/dL (3.5-5.0); Albumin Globulin Ratio 1.3 (1.0-2.8); Alkaline Phosphatase 46 U/L (38-126); Aspartate Aminotransferase 31 IU/L (14-36); BUN Creatinine Ratio 37.5 (6-22); Bilirubin Total 0.3 mg/dL (0.2-1.3); Blood Urea Nitrogen 21 mg/dL (7-17); Calcium 9.7 mg/dL (8.4-10.2); Carbon Dioxide 31 mmol/L (22-32); Chloride 99 mmol/L (98-107); Estimated Glomerular Filt Rate > 60.0 mL/min (>60); Globulin 3.6 g/dL (1.7-4.1); Glucose 105 mg/dL (70-100); HEMOLYSIS < 15 (0-50); Potassium 4.4 mmol/L (3.4-5.1); Sodium 137 mmol/L (137-145); Total Protein 8.2 g/dL (6.3-8.2)
== END ==
PROVIDERS: PCP Family Medicine; Referring Provider Family Medicine; Visit Provider Family Medicine
DX: E03.9 Hypothyroidism, unspecified (principal); R53.83 Other fatigue
CPT/HCPCS: 36415; 80053; 84439; 84443; 84481; 85025

== ENCOUNTER → 2020-01-19 10:17 | Outpatient (CLI) | payer OTHER, SELFPAY ==
[2020-01-19 13:11] LABS: Follicle Stimulating Hormone 4.13 mIU/mL; Luteinizing Hormone 0.24 mIU/mL; Progesterone, Total 8.93 ng/mL
[2020-01-19 13:27] LABS: Estradiol, Total 45.7 pg/mL
== END ==
PROVIDERS: PCP Family Medicine; Referring Provider Physician Assistant; Visit Provider Physician Assistant
DX: G43.909 Migraine, unspecified, not intractable, without status migrainosus (principal); N91.2 Amenorrhea, unspecified
CPT/HCPCS: 36415; 82670; 83001; 83002; 84144